=== PATIENT | male | born 1930 | race Caucasian/White ===

== ENCOUNTER 2019-04-05 08:38 | Day surgery (SDC) | payer OTHER ==
[2019-04-04 16:56] LABS: Basophils % 0.4 % (0-1.3); Hematocrit 36.5 % (39.6-49.0); Lymphocytes % 16.2 % (15.3-44.8); MPV 6.8 fL (7.6-11.3); RBC Red Blood Cell Count 4.29 M/uL (4.33-5.43)
[2019-04-04 17:12] LABS: Potassium 3.9 mmol/L (3.5-5.1)
--- NOTE | 2019-04-04 17:30 | RAD REPORT ---
EXAM DESCRIPTION: RAD - Chest Pa And Lat (2 Views) - 04/04/2019 5:24 pm CLINICAL HISTORY: preop, pending soft tissue wound treatment left shoulder COMPARISON: CHEST SINGLE VIEW dated 02/12/2013 TECHNIQUE: Frontal and lateral views of the chest were obtained. FINDINGS: The lungs are clear. Diaphragmatic eventration present. Heart size is normal and central vasculature is within normal limits. No pleural effusion or pneumothorax seen. No acute bony findin g noted. No aortic abnormality. IMPRESSION: No acute cardiopulmonary process.
--- NOTE | 2019-04-04 17:42 | EKG ---
Test Date: 2019-04-04 Test Time: 16:15:06 Wire Wheeler: LEVON MEASUREMENT RESULTS: Intervals: Rate: 67 CO: QRSD: 90 QT: 440 QTc: 464 Bagley: P: CO: QRS: 28 T: 39 INTERPRETIVE STATEMENTS: Atrial fibrillation Prolonged QT Abnormal ECG Compared to ECG 02/12/2013 17:18:53 Prolonged QT interval now present Sinus rhythm no longer present First degree AV block no longer present Myocardial infarct finding no longer present T-wave abnormality no longer present Electronically Signed On 04-04-19 17:41:25 MATERIAL CHASER by Cachorro Ortiz
--- OUTSIDE RECORDS SUMMARY | 2019-04-05 08:41 | XMS REPORT ---
:1930 [facility] [address] [place] [address] Care Team Providers Name Role Phone NATHEN CRISOSTOMO Unavailable Unavailable Problems This patient has no known problems. Allergies, Adverse Reactions, Alerts This patient has no known allergies or adverse reactions. Medications This patient has no known medications. Results Test Description Test Time Test Comments Text Results Atomic Results Result Comments AFB CULTURE + SMEAR 2018-05-10 14:27:00 Test Item Value Reference Range Comments CULTURE (BEAKER) (test wzuc=8065) No acid-fast bacilli isolated in 42 days AFB SMEAR (BEAKER) (test oyzh=127) No acid fast bacilli seen FUNGUS CULTURE + [id number] 15:50:00 Test Item Value Reference Range Comments CULTURE (BEAKER) (test 2+ Kenia glabrata quta=0013) FUNGUS SMEAR (BEAKER) No fungal elements seen (test ctir=5764) ANAEROBIC [id number] 03:13:00 Test Item Value Reference Range Comments CULTURE (BEAKER) (test xuer=9468) No anaerobes isolated BASIC METABOLIC [id number] 07:27:00 Test Item Value Reference Range Comments SODIUM (BEAKER) (test 138 meq/L 136-145 bahy=431) POTASSIUM (BEAKER) (test 4.1 meq/L 3.5-5.1 keqo=970) CHLORIDE (BEAKER) (test 105 meq/L 98-107 czlj=905) CO2 (BEAKER) (test 27 meq/L 22-29 anuf=976) BLOOD UREA NITROGEN 20 mg/dL 7-21 (BEAKER) (test ujcv=833) CREATININE (BEAKER) (test 0.76 mg/dL 0.57-1.25 rsun=023) GLUCOSE RANDOM (BEAKER) 98 mg/dL 70-105 (test iuki=970) CALCIUM (BEAKER) (test 8.6 mg/dL 8.4-10.2 cslw=554) EGFR (BEAKER) (test 97 mL/min/1.73 sq m ESTIMATED GFR IS NOT stfk=2509) ACCURATE CREATININE CLEARANCE IN PREDICTING GLOMERULAR FILTRATION RATE. ESTIMATED GFR IS NOT APPLICABLE FOR DIALYSIS PATIENTS. CBC W/PLT COUNT & AUTO [id number] 06:59:00 Test Item Value Reference Range Comments WHITE BLOOD CELL COUNT (BEAKER) (test tlnt=181) 6.8 K/ L 3.5-10.5 RED BLOOD CELL COUNT (BEAKER) (test heth=634) 4.04 M/ L 4.63-6.08 HEMOGLOBIN (BEAKER) (test jwdu=384) 11.0 GM/DL 13.7-17.5 HEMATOCRIT (BEAKER) (test ctmi=421) 36.0 % 40.1-51.0 MEAN CORPUSCULAR VOLUME (BEAKER) (test xqkz=169) 89.1 fL 79.0-92.2 MEAN CORPUSCULAR HEMOGLOBIN (BEAKER) (test 27.2 pg 25.7-32.2 imub=630) MEAN CORPUSCULAR HEMOGLOBIN CONC (BEAKER) (test 30.6 GM/DL 32.3-36.5 ruom=250) RED CELL DISTRIBUTION WIDTH (BEAKER) (test 17.7 % 11.6-14.4 tchn=904) PLATELET COUNT (BEAKER) (test bqoo=032) 214 K/CU MM 150-450 MEAN PLATELET VOLUME (BEAKER) (test unyp=946) 7.8 fL 9.4-12.4 NUCLEATED RED BLOOD CELLS (BEAKER) (test 0 /100 WBC 0-0 lcyu=271) NEUTROPHILS RELATIVE PERCENT (BEAKER) (test 75 % ffes=806) LYMPHOCYTES RELATIVE PERCENT (BEAKER) (test 12 % capo=722) MONOCYTES RELATIVE PERCENT (BEAKER) (test 8 % xiqg=053) EOSINOPHILS RELATIVE PERCENT (BEAKER) (test 2 % vddy=270) BASOPHILS RELATIVE PERCENT (BEAKER) (test 1 % ufnj=551) NEUTROPHILS ABSOLUTE COUNT (BEAKER) (test 5.04 K/ L 1.78-5.38 ebrm=662) LYMPHOCYTES ABSOLUTE COUNT (BEAKER) (test 0.83 K/ L 1.32-3.57 bjlo=651) MONOCYTES ABSOLUTE COUNT (BEAKER) (test 0.56 K/ L 0.30-0.82 fllq=111) EOSINOPHILS ABSOLUTE COUNT (BEAKER) (test 0.14 K/ L 0.04-0.54 btqn=948) BASOPHILS ABSOLUTE COUNT (BEAKER) (test 0.04 K/ L 0.01-0.08 xyys=694) IMMATURE GRANULOCYTES-RELATIVE PERCENT (BEAKER) 2 % 0-1 (test olqu=4025) URINE [id number] 12:36:00 Test Item Value Reference Range Comments CULTURE (BEAKER) (test >100,000 col/mL Kenia ldim=3609) tropicalis URINE [id number] 11:57:00 Test Item Value Reference Range Comments CULTURE (BEAKER) (test 20-29,000 col/mL Kenia hima=5751) tropicalisof a second type BASIC METABOLIC [id number] 07:03:00 Test Item Value Reference Range Comments SODIUM (BEAKER) (test 135 meq/L 136-145 phqj=900) POTASSIUM (BEAKER) (test 3.9 meq/L 3.5-5.1 tkmi=509) CHLORIDE (BEAKER) (test 106 meq/L 98-107 iyfe=502) CO2 (BEAKER) (test 23 meq/L 22-29 uomn=597) BLOOD UREA NITROGEN 16 mg/dL 7-21 (BEAKER) (test lvhv=297) CREATININE (BEAKER) (test 0.85 mg/dL 0.57-1.25 lcnm=056) GLUCOSE RANDOM (BEAKER) 87 mg/dL 70-105 (test jznt=016) CALCIUM (BEAKER) (test 8.2 mg/dL 8.4-10.2 hzbn=792) EGFR (BEAKER) (test 85 mL/min/1.73 sq m ESTIMATED GFR IS NOT nqpj=7679) ACCURATE CREATININE CLEARANCE IN PREDICTING GLOMERULAR FILTRATION RATE. ESTIMATED GFR IS NOT APPLICABLE FOR DIALYSIS PATIENTS. CBC W/PLT COUNT & AUTO [id number] 06:47:00 Test Item Value Reference Range Comments WHITE BLOOD CELL COUNT (BEAKER) (test kydl=184) 8.5 K/ L 3.5-10.5 RED BLOOD CELL COUNT (BEAKER) (test xwby=648) 4.11 M/ L 4.63-6.08 HEMOGLOBIN (BEAKER) (test ukyn=498) 11.1 GM/DL 13.7-17.5 HEMATOCRIT (BEAKER) (test shyl=036) 37.5 % 40.1-51.0 MEAN CORPUSCULAR VOLUME (BEAKER) (test jvgu=160) 91.2 fL 79.0-92.2 MEAN CORPUSCULAR HEMOGLOBIN (BEAKER) (test 27.0 pg 25.7-32.2 gnus=067) MEAN CORPUSCULAR HEMOGLOBIN CONC (BEAKER) (test 29.6 GM/DL 32.3-36.5 uhmx=273) RED CELL DISTRIBUTION WIDTH (BEAKER) (test 17.2 % 11.6-14.4 ogjy=834) PLATELET COUNT (BEAKER) (test vznq=595) 213 K/CU MM 150-450 MEAN PLATELET VOLUME (BEAKER) (test wrzp=422) 8.0 fL 9.4-12.4 NUCLEATED RED BLOOD CELLS (BEAKER) (test 0 /100 WBC 0-0 vjjt=749) NEUTROPHILS RELATIVE PERCENT (BEAKER) (test 80 % iqxj=859) LYMPHOCYTES RELATIVE PERCENT (BEAKER) (test 8 % lgrw=754) MONOCYTES RELATIVE PERCENT (BEAKER) (test 8 % yruf=813) EOSINOPHILS RELATIVE PERCENT (BEAKER) (test 1 % lhsn=695) BASOPHILS RELATIVE PERCENT (BEAKER) (test 1 % eekx=023) NEUTROPHILS ABSOLUTE COUNT (BEAKER) (test 6.81 K/ L 1.78-5.38 bcza=364) LYMPHOCYTES ABSOLUTE COUNT (BEAKER) (test 0.72 K/ L 1.32-3.57 prkj=677) MONOCYTES ABSOLUTE COUNT (BEAKER) (test 0.69 K/ L 0.30-0.82 bvzz=521) EOSINOPHILS ABSOLUTE COUNT (BEAKER) (test 0.11 K/ L 0.04-0.54 dazf=674) BASOPHILS ABSOLUTE COUNT (BEAKER) (test 0.05 K/ L 0.01-0.08 ahet=559) IMMATURE GRANULOCYTES-RELATIVE PERCENT (BEAKER) 2 % 0-1 (test ugdi=0136) SPIN/CONCENTRATION [id number] 11:15:00 Test Item Value Reference Range Comments CONCENTRATION CHARGED (BEAKER) (test fibi=1634) Done BASIC METABOLIC [id number] 06:17:00 Test Item Value Reference Range Comments SODIUM (BEAKER) (test 139 meq/L 136-145 chfl=030) POTASSIUM (BEAKER) (test 3.9 meq/L 3.5-5.1 qczt=521) CHLORIDE (BEAKER) (test 109 meq/L 98-107 xcxu=674) CO2 (BEAKER) (test 24 meq/L 22-29 lchs=277) BLOOD UREA NITROGEN 15 mg/dL 7-21 (BEAKER) (test cesm=227) CREATININE (BEAKER) (test 0.93 mg/dL 0.57-1.25 vwoj=786) GLUCOSE RANDOM (BEAKER) 99 mg/dL 70-105 (test xuuc=883) CALCIUM (BEAKER) (test 8.3 mg/dL 8.4-10.2 gsca=416) EGFR (BEAKER) (test 77 mL/min/1.73 sq m ESTIMATED GFR IS NOT sfzr=4140) ACCURATE CREATININE CLEARANCE IN PREDICTING GLOMERULAR FILTRATION RATE. ESTIMATED GFR IS NOT APPLICABLE FOR DIALYSIS PATIENTS. CBC W/PLT COUNT & AUTO [id number] 05:15:00 Test Item Value Reference Range Comments WHITE BLOOD CELL COUNT (BEAKER) (test cqsy=957) 7.7 K/ L 3.5-10.5 RED BLOOD CELL COUNT (BEAKER) (test lqrr=316) 4.16 M/ L 4.63-6.08 HEMOGLOBIN (BEAKER) (test eoow=010) 11.3 GM/DL 13.7-17.5 HEMATOCRIT (BEAKER) (test bptj=157) 37.7 % 40.1-51.0 MEAN CORPUSCULAR VOLUME (BEAKER) (test wssj=802) 90.6 fL 79.0-92.2 MEAN CORPUSCULAR HEMOGLOBIN (BEAKER) (test 27.2 pg 25.7-32.2 youx=455) MEAN CORPUSCULAR HEMOGLOBIN CONC (BEAKER) (test 30.0 GM/DL 32.3-36.5 bneg=942) RED CELL DISTRIBUTION WIDTH (BEAKER) (test 17.0 % 11.6-14.4 prsx=495) PLATELET COUNT (BEAKER) (test qbju=162) 218 K/CU MM 150-450 MEAN PLATELET VOLUME (BEAKER) (test sbuy=770) 8.1 fL 9.4-12.4 NUCLEATED RED BLOOD CELLS (BEAKER) (test 0 /100 WBC 0-0 cafb=104) NEUTROPHILS RELATIVE PERCENT (BEAKER) (test 80 % uyrh=346) LYMPHOCYTES RELATIVE PERCENT (BEAKER) (test 10 % irnw=834) MONOCYTES RELATIVE PERCENT (BEAKER) (test 7 % tmkl=362) EOSINOPHILS RELATIVE PERCENT (BEAKER) (test 1 % ezdb=947) BASOPHILS RELATIVE PERCENT (BEAKER) (test 1 % vcmw=851) NEUTROPHILS ABSOLUTE COUNT (BEAKER) (test 6.15 K/ L 1.78-5.38 plun=939) LYMPHOCYTES ABSOLUTE COUNT (BEAKER) (test 0.77 K/ L 1.32-3.57 ogbe=585) MONOCYTES ABSOLUTE COUNT (BEAKER) (test 0.52 K/ L 0.30-0.82 nhte=261) EOSINOPHILS ABSOLUTE COUNT (BEAKER) (test 0.07 K/ L 0.04-0.54 fbfn=292) BASOPHILS ABSOLUTE COUNT (BEAKER) (test 0.05 K/ L 0.01-0.08 rkxb=247) IMMATURE GRANULOCYTES-RELATIVE PERCENT (BEAKER) 2 % 0-1 (test rmhh=0303) CT, PELVIS, W [id number] 03:32:00FINAL REPORT EXAMINATION: Pelvic CT with IV contrast CLINICAL HISTORY: Penile abscess COMPARISON EXAM: None TECHNIQUE: Following the administration of IV contrast, axial tomographic images were acquired through the pelvis. Postprocessing was performed and coronal and sagittal reformatted images were created and reviewed. The exam was performed according to our departmental dose optimization program which includes automated exposure control, adjustment of the mA and/or kV according to patient's size and/or use of iterative reconstructive technique. FINDINGS: A complex 6 cm fluid collection is noted at the base of the penis which is associated with peripheral rim enhancement. The margins of the fluid collection are mildly lobulated. Query subtle associated internal septations/loculations. The adjacent penile soft tissues also appear inflamed with skin thickening concerningfor a possible associated cellulitis. The scrotum is also associated with an edematous appearance with low -attenuation possibly complex fluid. Although findings may reflect reactive changes including complex hydroceles, regional extension of infection should also be considered. Multiple punctate gas collections are noted in the region of the prostate bed and likely near the seminal vesicles. There isalso subtle fat stranding near the prostate bed, base of bladder and rectosigmoid colon. A relatively large volume of gas is noted within the nondependent portion of the bladder which may be related torecent instrumentation. Small punctate gas collections are also noted along the lateral murphy of thebladder, nonspecific but concerning for possible emphysematous cystitis. The wall thickening of the bladder may reflect chronic changes related to chronic low-grade bladder outlet obstruction and/or cystitis. The distal ureters are associated with symmetric mild-moderate dilatation compatible with bladder outlet obstruction. The inferior pole of the right kidney is incompletely visualized however right visualized renal inferior pole right renal calyx appears dilated. The visualized loops of small bowel are normal in caliber. A relatively large volume of inspissated stool is noted throughout the colon suggesting a degree of dysmotility/constipation. Colonic diverticulosis is noted, extensive involving the sigmoid and rectosigmoid segments. There is wall thickening of the distal rectosigmoid colon, a component of which may reflect incomplete distention. A focal colitis or diverticulitis cannot be excluded. The terminal abdominal aorta is normal in caliber. Diffuse calcific atherosclerotic changes are noted involving the distal aorta, iliac and visualized femoral arteries. There is diffuse infiltration of the subcutaneous tissues suggesting a component of third spacing of fluid/anasarca. The bone marrow is heterogeneous, component of which is favored to reflect osteopenia. Degenerative changes are noted in the lower lumbar spine with spinal canal stenosis at L3-L4, L4-L5 and L5-S1. Small punctate subcentimeter sclerotic foci are noted involving the lower lumbar spine, bony pelvis and proximal left femur. Although bone islands are morphologically and statistically favored, small sclerotic metastatic foci cannot be excluded. Moderate to advanced degenerative changes are noted at the sacroiliac joints and both hips. No definite evidence of an acute osseous abnormality. IMPRESSION: Large complex rim-enhancing 6 cm fluid collection at the base of penis, nonspecific but concerning for possible abscess. Skin thickening and infiltration of the penile soft tissues concerning for an associatedcellulitis. Small punctate gas collections involving the penis may be related to lack of circumcision. However, gas related to infection would also be a consideration. The scrotum also has a diffusely edematous appearance which may reflect reactive changes or regional extension of infection. Small punctate gas collections within the prostate gland. Although findings may be iatrogenic ( ? recent biopsy), infection would also again be a consideration. Colonic diverticulosis. Wall thickening of the rectosigmoid colon may reflect incomplete distention. A focal colitis or diverticulitis cannot be excluded. Fistulous connection from the distal rectosigmoid colon to the prostate bed ( possibly related to diverticulitis) would be included in the differential diagnosis for the prostate bed gas detailed above. Distended bladder concerning for possible bladder outlet obstruction. The bladder wall thickeningand adjacent fat stranding are nonspecific but concerning for possible cystitis. The large volume ofgas within the nondependent portion of the bladder may reflect recent instrumentation. However, small punctate gas collections are also noted along the nondependent lateral murphy of the bladder. Emphysematous cystitis would be a consideration. Bilateral relatively symmetric mild-moderate dilatation ofthe distal ureters, again suggestive of bladder outlet obstruction. Patient may benefit from bladderdecompression. Signed: Rigo Chauhan MDReport Verified Date/Time: 03/22/2018 03:32:45 Reading Location: [address] Reading Room BASIC METABOLIC [id number] 08:03:00 Test Item Value Reference Range Comments SODIUM (BEAKER) (test 135 meq/L 136-145 gbse=229) POTASSIUM (BEAKER) (test 4.0 meq/L 3.5-5.1 rvoi=266) CHLORIDE (BEAKER) (test 108 meq/L 98-107 okjn=699) CO2 (BEAKER) (test 23 meq/L 22-29 vjfl=655) BLOOD UREA NITROGEN 14 mg/dL 7-21 (BEAKER) (test vwev=115) CREATININE (BEAKER) (test 1.08 mg/dL 0.57-1.25 dlqn=325) GLUCOSE RANDOM (BEAKER) 86 mg/dL 70-105 (test yblw=390) CALCIUM (BEAKER) (test 7.9 mg/dL 8.4-10.2 yona=583) EGFR (BEAKER) (test 65 mL/min/1.73 sq m ESTIMATED GFR IS NOT saqe=8478) ACCURATE CREATININE CLEARANCE IN PREDICTING GLOMERULAR FILTRATION RATE. ESTIMATED GFR IS NOT APPLICABLE FOR DIALYSIS PATIENTS. [id number] 07:58:00 Test Item Value Reference Range Comments PHOSPHORUS (BEAKER) (test dntn=534) 2.3 mg/dL 2.3-4.7 [id number] 07:58:00 Test Item Value Reference Range Comments MAGNESIUM (BEAKER) (test jnye=504) 2.0 mg/dL 1.6-2.6 BODY FLUID CULTURE + GRAM [id number] 13:07:00 Test Item Value Reference Range Comments CULTURE (BEAKER) (test CITROBACTER KOSERI 3+ Citrobacter koseri syvg=5974) Amikacin (test code=1) Aztreonam (test code=32) Cefepime (test code=51) Ceftazidime (test code=27) Ceftriaxone (test code=52) Ertapenem (test code=38) Gentamicin (test code=18) Levofloxacin (test code=22) Meropenem (test code=34) Piperacillin + Tazobactam (test code=29) Tetracycline (test code=2) Tobramycin (test code=25) Trimethoprim + Sulfamethoxazole (test code=47) GRAM STAIN RESULT (BEAKER) 3+ WBCs (test gztz=2262) GRAM STAIN RESULT (BEAKER) No organisms seen (test dbdo=785091) URINALYSIS W/ [id number] 08:08:00 Test Item Value Reference Range Comments COLOR (BEAKER) (test iwph=565) Yellow CLARITY (BEAKER) (test jlrp=193) Hazy SPECIFIC GRAVITY UA (BEAKER) (test smis=828) 1.014 1.001-1.035 PH UA (BEAKER) (test cuid=302) 5.0 5.0-8.0 PROTEIN UA (BEAKER) (test hxuv=519) 20 mg/dL Negative GLUCOSE UA (BEAKER) (test nnzj=494) Negative Negative KETONES UA (BEAKER) (test boso=815) Negative Negative BILIRUBIN UA (BEAKER) (test cclt=170) Negative Negative BLOOD UA (BEAKER) (test vtgm=336) Small Negative NITRITE UA (BEAKER) (test tlog=785) Negative Negative LEUKOCYTE ESTERASE UA (BEAKER) (test sepw=879) Large Negative UROBILINOGEN UA (BEAKER) (test ogui=211) 0.2 mg/dL 0.2-1.0 RBC UA (BEAKER) (test jfzu=450) 24 /HPF WBC UA (BEAKER) (test jlkx=493) > /HPF SQUAMOUS EPITHELIAL (BEAKER) (test cjss=374) 1 /HPF SOURCE(BEAKER) (test essp=8827) Urine, Voided [id number] 04:34:00 Test Item Value Reference Range Comments MAGNESIUM (BEAKER) (test wyek=398) 1.8 mg/dL 1.6-2.6 BASIC METABOLIC [id number] 04:34:00 Test Item Value Reference Range Comments SODIUM (BEAKER) (test 140 meq/L 136-145 qpnu=255) POTASSIUM (BEAKER) (test 3.7 meq/L 3.5-5.1 qfnr=864) CHLORIDE (BEAKER) (test 114 meq/L 98-107 phjj=477) CO2 (BEAKER) (test 20 meq/L 22-29 bjbf=813) BLOOD UREA NITROGEN 16 mg/dL 7-21 (BEAKER) (test jvcs=416) CREATININE (BEAKER) (test 0.92 mg/dL 0.57-1.25 igix=357) GLUCOSE RANDOM (BEAKER) 83 mg/dL 70-105 (test chje=969) CALCIUM (BEAKER) (test 8.2 mg/dL 8.4-10.2 kcuz=573) EGFR (BEAKER) (test 78 mL/min/1.73 sq m ESTIMATED GFR IS NOT jrld=9071) ACCURATE CREATININE CLEARANCE IN PREDICTING GLOMERULAR FILTRATION RATE. ESTIMATED GFR IS NOT APPLICABLE FOR DIALYSIS PATIENTS. CBC W/PLT COUNT & AUTO [id number] 04:09:00 Test Item Value Reference Range Comments WHITE BLOOD CELL COUNT (BEAKER) (test nzax=944) 6.3 K/ L 3.5-10.5 RED BLOOD CELL COUNT (BEAKER) (test xxtb=363) 3.86 M/ L 4.63-6.08 HEMOGLOBIN (BEAKER) (test ehsm=810) 10.4 GM/DL 13.7-17.5 HEMATOCRIT (BEAKER) (test qsbd=996) 35.0 % 40.1-51.0 MEAN CORPUSCULAR VOLUME (BEAKER) (test hhhq=629) 90.7 fL 79.0-92.2 MEAN CORPUSCULAR HEMOGLOBIN (BEAKER) (test 26.9 pg 25.7-32.2 brdy=930) MEAN CORPUSCULAR HEMOGLOBIN CONC (BEAKER) (test 29.7 GM/DL 32.3-36.5 lwkw=153) RED CELL DISTRIBUTION WIDTH (BEAKER) (test 16.0 % 11.6-14.4 wtqk=491) PLATELET COUNT (BEAKER) (test gpfy=201) 215 K/CU MM 150-450 MEAN PLATELET VOLUME (BEAKER) (test rwyu=439) 8.4 fL 9.4-12.4 NUCLEATED RED BLOOD CELLS (BEAKER) (test 0 /100 WBC 0-0 ygqk=722) NEUTROPHILS RELATIVE PERCENT (BEAKER) (test 75 % znku=640) LYMPHOCYTES RELATIVE PERCENT (BEAKER) (test 12 % xtpm=111) MONOCYTES RELATIVE PERCENT (BEAKER) (test 7 % uyzl=621) EOSINOPHILS RELATIVE PERCENT (BEAKER) (test 2 % aksn=577) BASOPHILS RELATIVE PERCENT (BEAKER) (test 1 % kkzs=146) NEUTROPHILS ABSOLUTE COUNT (BEAKER) (test 4.72 K/ L 1.78-5.38 vmko=264) LYMPHOCYTES ABSOLUTE COUNT (BEAKER) (test 0.74 K/ L 1.32-3.57 qetq=744) MONOCYTES ABSOLUTE COUNT (BEAKER) (test 0.41 K/ L 0.30-0.82 subz=531) EOSINOPHILS ABSOLUTE COUNT (BEAKER) (test 0.15 K/ L 0.04-0.54 yoei=544) BASOPHILS ABSOLUTE COUNT (BEAKER) (test 0.04 K/ L 0.01-0.08 skvg=877) IMMATURE GRANULOCYTES-RELATIVE PERCENT (BEAKER) 4 % 0-1 (test xqpa=7527) TSH/FREE T4 IF [id number] 18:34:00 Test Item Value Reference Range Comments THYROID STIMULATING HORMONE (BEAKER) (test 3.04 uIU/mL 0.35-4.94 ueyv=137) [id number] 07:47:00 Test Item Value Reference Range Comments MAGNESIUM (BEAKER) (test 2.1 mg/dL 1.6-2.6 Specimen slightly hemolyzed liit=587) BASIC METABOLIC [id number] 07:47:00 Test Item Value Reference Range Comments SODIUM (BEAKER) (test 140 meq/L 136-145 nhex=923) POTASSIUM (BEAKER) (test 3.7 meq/L 3.5-5.1 Specimen slightly aduc=708) hemolyzed CHLORIDE (BEAKER) (test 111 meq/L 98-107 fwxc=535) CO2 (BEAKER) (test 20 meq/L 22-29 sjrk=711) BLOOD UREA NITROGEN 22 mg/dL 7-21 (BEAKER) (test egjm=094) CREATININE (BEAKER) (test 0.99 mg/dL 0.57-1.25 Specimen slightly bcdi=744) hemolyzed GLUCOSE RANDOM (BEAKER) 94 mg/dL 70-105 (test olxa=882) CALCIUM (BEAKER) (test 8.5 mg/dL 8.4-10.2 dvwa=381) EGFR (BEAKER) (test 71 mL/min/1.73 sq m ESTIMATED GFR IS NOT iisk=4495) ACCURATE CREATININE CLEARANCE IN PREDICTING GLOMERULAR FILTRATION RATE. ESTIMATED GFR IS NOT APPLICABLE FOR DIALYSIS PATIENTS. B-TYPE NATRIURETIC FACTOR (BNP)2018-03-18 07:22:00 Test Item Value Reference Range Comments B-TYPE NATRIURETIC PEPTIDE (BEAKER) (test 259 pg/mL 0-100 pdbx=970) [id number] 07:07:00 Test Item Value Reference Range Comments PROTIME (BEAKER) (test esum=723) 14.9 seconds 11.7-14.7 INR (BEAKER) (test ruac=341) 1.2 <=5.9 PARTIAL THROMBOPLASTIN TIME (BEAKER) (test 37.2 seconds 22.5-36.0 wbub=986) RECOMMENDED COUMADIN/WARFARIN INR THERAPY RANGESSTANDARD DOSE: 2.0 - 3.0 Includes: PROPHYLAXIS forvenous thrombosis, systemic embolization; TREATMENT for venous thrombosis and/or pulmonary embolus.HIGH RISK: Target INR is 2.5-3.5 for patients with mechanical heart valves.CBC (HEMOGRAM ONLY)2018-03-18 06:59:00 Test Item Value Reference Range Comments WHITE BLOOD CELL COUNT (BEAKER) (test mohs=282) 8.3 K/ L 3.5-10.5 RED BLOOD CELL COUNT (BEAKER) (test mlxm=928) 3.81 M/ L 4.63-6.08 HEMOGLOBIN (BEAKER) (test xpgv=473) 10.3 GM/DL 13.7-17.5 HEMATOCRIT (BEAKER) (test bcds=427) 34.9 % 40.1-51.0 MEAN CORPUSCULAR VOLUME (BEAKER) (test nnsx=349) 91.6 fL 79.0-92.2 MEAN CORPUSCULAR HEMOGLOBIN (BEAKER) (test 27.0 pg 25.7-32.2 iswa=506) MEAN CORPUSCULAR HEMOGLOBIN CONC (BEAKER) (test 29.5 GM/DL 32.3-36.5 mopp=059) RED CELL DISTRIBUTION WIDTH (BEAKER) (test 16.0 % 11.6-14.4 wmgy=646) PLATELET COUNT (BEAKER) (test jvkx=450) 195 K/CU MM 150-450 MEAN PLATELET VOLUME (BEAKER) (test njuc=011) 9.0 fL 9.4-12.4 NUCLEATED RED BLOOD CELLS (BEAKER) (test 0 /100 WBC 0-0 qppm=903)
[2019-04-05] MEDS ORDERED: Ringers Lactate 1,000 ML IV ONE (09:04)
[2019-04-05] MEDS ORDERED: CEFAZOLIN/SWI 1gm 1 GM/10 ML SYR ONE (09:04)
[2019-04-05] MEDS ORDERED: COLLAGENASE 30 GM OINTMENT TOP ONE (10:59)
[2019-04-05 12:23] VITALS: O2SAT 97
[2019-04-05 13:20] VITALS: BP 124/81; TEMP 97.8
--- NOTE | 2019-04-05 21:55 | OP ---
Date of Procedure: 04/05/2019 Surgeon: Franklin Mcclain MD [employer] Officer: DAVID Parmar. Preoperative Diagnosis: Left shoulder skin cancer. Postoperative Diagnoses: Left shoulder skin cancer, squamous cell carcinoma. Procedure Performed: Wide excision of left shoulder skin cancer 8 x 6 cm. Subcutaneous tissue andrade ns grossly negative. Estimated Blood Loss: Minimal. Specimen: Left shoulder mass. Findings: As above. Anesthesia: General. Complications: None. Disposition: Patient tolerated the procedure in stable condition, taken to Recovery in good general condition. Procedure In Detail: Patient was brought to the OR and placed in supine position. General anesthesi a was begun. Patient was prepped and draped in the usual sterile fashion in the right lateral positi on. Marcaine 0.5% was infiltrated locally and then 15 blade was used to make an 8 x 6 cm incision to excise this large ulcerated and necrotic mass. Margins were approximately grossly 5 mm to 1 cm and the dissection proceeded all the way down to the deep subcutaneous tissue near the muscle. The entir e specimen was excised. Because of the size of the lesion, it was difficult to debride the entire le kimberly, so a section of the lesion was frozen and the deep margin was negative and the peripheral andrade ns were grossly negative. Subcutaneous wound irrigated, bleeding controlled with cautery. Collagena se, wet-to-dry, normal saline dressing change applied. Patient tolerated the procedure in stable con dition, taken to Recovery in good general condition. Discharge Note: The patient will go to day surgery and home when stable. Disposition: To assisted. Condition: Stable. Discharge Instructions: Resume home medications and diet. Activity as tolerated. No heavy lifting. Remove outer dressing in a.m., collagenase, wet-to-dry daily. Follow up wound healing center in 1 week. Call for appointment. Ultracet 1 tablet p.o. q.4 p.r.n. pain. /MODL Voice ID: [id number] Report ID: [id number]
== END 2019-04-05 13:08 | disposition home or self-care (01) ==
LOC: OR 08:38
PROVIDERS: ATTEND Surgery
PROC: 0JBF0ZZ Excision of Left Upper Arm Subcutaneous Tissue and Fascia, Open Approach (ICD-10-PCS; principal; 2019-04-05 10:00)
DX: C44.629 Squamous cell carcinoma of skin of left upper limb, including shoulder (principal); I48.0 Paroxysmal atrial fibrillation; I11.0 Hypertensive heart disease with heart failure; I50.9 Heart failure, unspecified; G20 Parkinson's disease; G47.00 Insomnia, unspecified; R27.9 Unspecified lack of coordination; Z88.6 Allergy status to analgesic agent; R13.12 Dysphagia, oropharyngeal phase; E78.2 Mixed hyperlipidemia; M62.81 Muscle weakness (generalized); F03.90 Unspecified dementia, unspecified severity, without behavioral disturbance, psychotic disturbance, mood disturbance, and anxiety
CPT/HCPCS: 93005; 85025; 80048; 36415; 88331; 88305; 71046; 11606; J0690; J7120; J3590